=== PATIENT | female | born 1975 | race Caucasian/White ===

== ENCOUNTER 2024-05-16 21:08 | Emergency (ER) | payer BC, SELFPAY ==
[2024-05-16 21:09] VITALS: BMI 29.2
[2024-05-16 21:27] VITALS: BP 114/76; PULSE 82; RESP 18; TEMP 36.9; O2SAT 99
--- NOTE | 2024-05-16 21:58 | PD.EDSKIN ---
ED Skin Abcess FB-RME/HPI General Chief complaint: Skin/Abscess/Foreign Body Stated complaint: BUMP ON FOREHEAD Time Seen by Provider: 05/16/24 21:49 Arrival date/time: 05/16/24 21:08 RME / HPI RME / HPI narrative: 49-year-old female patient with significant history of diabetes mellitus, came in for evaluation regarding regarding abscess forehead. This been ongoing for the last 4 to 5 days and is painful like swelling, weakness getting worse, severity moderate this time associated with swelling radiating to the lower forehead. Patient went to urgent care and was started on Keflex. Patient denies any fever denies any other complaints no medication was taken prior to arrival. Related Data Previous Rx's ?Medication ?Instructions ?Recorded ibuprofen 600 mg tablet 600 mg PO Q8H PRN pain #30 tabs 05/16/24 sulfamethoxazole 800 1 tab PO BID #14 tabs 05/16/24 mg-trimethoprim 160 mg tablet (Bactrim DS) Allergies Allergy/AdvReac Type Severity Reaction Status Date / Time No Known Allergies Allergy Verified 05/16/24 21:11 Review of Systems Review of Systems Narrative Review of Systems: Review of system reviewed and within normal limits except mentioned in HPI ED Exam Narrative Physical exam: VITAL SIGNS: Reviewed. GENERAL APPEARANCE: Alert and interactive, follows commands, no acute distress, HEAD AND FACE: +1x1 cm swelling redness, with puslike appearance left upper forehead with tenderness ENT: PERRL, pink conjunctivitis, eyelid no trauma, Mucous membrane moist. NECK: Supple, nontender, no nuchal rigidity. RECTAL: Deferred. GENITAL: Deferred. NEUROLOGICAL: Gross motor function intact sensory function intact, Appropriate for age. MUSCULOSKELETAL: low back nontender, full range of motion. EXTREMITIES: Nontender, full range of motion. SKIN: Color pink, dry, no rash, no lacerations, no abrasions, no contusions. LYMPHATICS: Deferred. Course Quality Measures none Orders Category Date Time Status Incision and Drainage Set Up X1 Care 05/16/24 21:51 Active Ibuprofen Tab [Motrin Tab] Med 05/16/24 21:57 Discontinued 800 mg PO X1 ONE Trimethoprim/Sulfa 160/800 Ds [Bactrim Ds] Med 05/16/24 21:57 Discontinued 1 tab PO X1 ONE Vital Signs Vital signs: Vital Signs Temperature 98.5 F 05/16/24 21:27 Pulse Rate 82 05/16/24 21:27 Respiratory Rate 18 05/16/24 21:27 Blood Pressure 114/76 05/16/24 21:27 Pulse Oximetry (%) 99 05/16/24 21:27 Oxygen Delivery Method Room Air 05/16/24 21:27 Procedures -ED Abscess I/D Site: face Sedation/analgesia: none Local Anesthetic: lidocaine 1% Amount of anesthesia used (mL): 3 Technique: incised with #11 blade Amount of fluid expressed (mL): 1 Irrigation: Yes Packing used?: none Complications: pain Skin / Abscess / Foreign Body MDM Narrative MDM Narrative:: 49-year-old female patient with significant history of diabetes mellitus, came in for evaluation regarding regarding abscess forehead. This been ongoing for the last 4 to 5 days and is painful like swelling, weakness getting worse, severity moderate this time associated with swelling radiating to the lower forehead. Patient went to urgent care and was started on Keflex. Patient denies any fever denies any other complaints no medication was taken prior to arrival. Incision and drainage was done by me see procedure note patient was also given Bactrim and Motrin in the emergency room. Patient tolerated the procedure well Patient data External records reviewed:: None Clinical information provided by:: patient Social determinants that could affect healthcare access:: none Patient has the following chronic illnesses:: Diabetes mellitus How is presenting disease/condition affected by chronic disease/condition?: caused by Evaluation data The following diagnostics were reviewed and interpreted by me:: other (specify) (None) Lab and/or radiology exams considered but not ordered:: None Interpretation Summary: None Medications / Prescriptions Medications or Prescriptions considered but not ordered:: None Medication administrations:: Medication Administration History Discontinued Medications Ibuprofen (Ibuprofen Tab 400 Mg Tablet) 800 mg PO X1 ONE Stop: 05/16/24 21:58 Last Admin: 05/16/24 22:03 Dose: 800 mg Documented By: ESTEFANI Trimethoprim/Sulfamethoxazole (Trimethoprim/Sulfa 160/800 Ds Tablet) 1 tab PO X1 ONE Stop: 05/16/24 21:58 Last Admin: 05/16/24 22:02 Dose: 1 tab Documented By: ESTEFANI Motrin and Bactrim Consultations Consultation(s) initiated? (list below): No Diagnosis Skin/Abscess Differential Diagnosis: abscess of skin or subcutaneous tissue and cellulitis Most likely diagnosis given after review of the tests above:: Abscess forehead Admission Indicated Admission indicated?: not indicated Admission Request Was there a request for admission?: No Disposition Plan Disposition Plan: Discharge Discharge Attestation Discharge Attestation: The patient and all family members were given an opportunity to ask questions and understood the discharge instructions. Discharge instructions specifically effects, indications for sooner follow up or return to the emergency department, and the expected course of current diagnosis. Patient condition: Stable Discharge Plan Plan Patient Disposition: HOME (Self Care) Disposition Comment: Stable Prescriptions/Referrals Prescriptions/Med Rec: New sulfamethoxazole-trimethoprim [Bactrim DS] 800-160 mg tablet 1 tab PO BID Qty: 14 0RF ibuprofen 600 mg tablet 600 mg PO Q8H PRN (Reason: pain) Qty: 30 0RF Problem List Clinical Impression: Abscess of forehead Patient/Caregiver Discharge Instructions Discharge Activity: activity as tolerated Education Materials: ED Abscess, Incision And Drainage Additional Instructions: Thank you for the opportunity for serving you today. You are stable for discharged . You are advised to: Follow-up with your PCP in 1 to 2 days Return to ED for worsening of symptoms Increase oral fluids Take medication as prescribed Continue taking your Keflex Daily dressing with bacitracin as needed Print Language: Nigerian Stand Alone Forms: [employer]ina Award Info., Patient Portal Info Letter
[2024-05-16] MEDS: TRIMETHOPRIM/SULFA 160/800 DS TABLET 1 TAB PO (22:02)
[2024-05-16] MEDS: IBUPROFEN TAB 400 MG TABLET 800 MG PO (22:03)
== END 2024-05-16 23:15 | disposition home or self-care (01) ==
LOC: SERX 22:52
PROVIDERS: Emergency Provider Emergency Medicine
DX: L02.01 Cutaneous abscess of face (principal); E11.9 Type 2 diabetes mellitus without complications
CPT/HCPCS: 10060; 99283; A9270